=== PATIENT | female | born 1945 | race Caucasian/White ===

== ENCOUNTER 2025-09-03 10:25 | Outpatient (RCR) | payer MEDICARE, SELFPAY ==
[2025-09-03 11:15] VITALS: BP 174/66; BMI 23.3
[2025-09-03] MEDS: PROLIA 60 MG SC (11:27)
== END 2025-09-04 09:06 | disposition home or self-care (01) ==
LOC: OID 10:25
PROVIDERS: ATTENDING PHYSICIAN Internal Medicine Endocrinology, Diabetes & Metabolism
DX: M81.0 Age-related osteoporosis without current pathological fracture (principal)
CPT/HCPCS: 96372; J0897